=== PATIENT | male | born 1995 | race Caucasian/White ===

== ENCOUNTER 2017-10-02 08:03 | Day surgery (SDC) | payer OTHER ==
[~2017-10-02 08:03] MED LIST: ceFAZolin 2 GM/50 ML 2 GM/50 ML BAG IV ONE
[2017-10-02] MEDS ORDERED: LACTATED RINGERS 1,000 ML IV ONE ×2 (08:48→14:53)
[2017-10-02] MEDS ORDERED: BUPIVACAINE 0.25% PF 30 ML VIAL SUBQ ONE ×2 (12:00)
[2017-10-02] MEDS ORDERED: ACETAMINOPHEN 1,000 MG/100 ML 100 ML IV ONE (14:28)
[2017-10-02] MEDS ORDERED: HYDROmorphone 1 MG/ML SYRINGE ONE (14:39)
[2017-10-02] MEDS ORDERED: oxyCODONE 5 MG TABLET ONE (14:55)
--- NOTE | 2017-10-02 15:01 | OPERATIVE REPORT ---
DATE OF SURGERY: 10/02/2017 SURGEON: Matty Elder MD HAIR BALER: Reema Fisher MD PREOPERATIVE DIAGNOSIS: Right scaphoid fracture, pending nonunion. POSTOPERATIVE DIAGNOSIS: Right scaphoid fracture, pending nonunion. PROCEDURE PERFORMED: Right scaphoid open reduction internal fixation with distal radius autograft. POSTOPERATIVE PLAN: Splint on until followup. Transition to a cast at 2 weeks. Maintain that till 6 weeks. Range of motion with a Velcro splint from [address] scan obtained at 3 months to ensure healing prior to any sports. INDICATION FOR SURGERY: A 22-year-old male who sustained the above injury when he was skating approximately 4 months ago. He is unsure exactly when it happened. He did not seek any treatment until already 3 months out from his injury. X-ray showed a fracture without healing. It remained to be tender and have pain. Risks, benefits, and alternatives were discussed; risks include pain, bleeding, infection, damage to nearby structures, lack of central relief, need for further surgery, implant complications. The reason for surgery is because healing is delayed presentation, will most likely go on to nonunion and potentially some deformity. SURGICAL FINDINGS: Mid waist scaphoid fracture nonunion. It was gapped open, filled with cancellous autograft, and fixed. IMPLANTS: Acumed Accu-Trak standard headless compression screw 20 mm. ANESTHESIA: General. ANTIBIOTICS: Ancef. ESTIMATED BLOOD LOSS: 10 mL. URINE OUTPUT: Not recorded. IV FLUIDS: One liter. TOURNIQUET TIME: 112 minutes at 200 mmHg. SPECIMENS: None. COMPLICATIONS: None. DISPOSITION: Stable to PACU. DVT PROPHYLAXIS: SCDs while in the hospital. Early frequent ambulation afterwards. PROCEDURE IN DETAIL: Patient presented to the preoperative holding area the day of the procedure. Operative extremity signed, consent was verified, he desired to proceed. He was brought to the operating room and was rendered anesthesia. Once general anesthesia had been obtained, he was placed in the supine position. All bony prominences were well padded. Surgical area was prepped and draped in a standard sterile fashion. Surgical time-out was held, we confirmed the patient identity, procedure, allergies, antibiotics, images, all were in agreement and we proceeded. A hockey stick incision was made, a total of 5 cm long, proximal aspect in line with the FCR tendon ending at the scaphoid tubercle and then a 1-cm limb in line with the muscle fibers of the thenar eminence. Electrocautery was used to obtain hemostasis. Sharp dissection was brought down to FCR tendon sheath; it was opened, the tendon was retracted ulnarly and the floor of the sheath was incised. I then came down to the level of the volar wrist capsule and cleared off the tissue from it. I sharply dissected the volar wrist capsule, being careful not to damage the underlying cartilage. I left the capsule attached to the distal fragment of the scaphoid tubercle as well. The fracture site was identified; there was no significant displacement. I removed the abundant cartilage border at the edge of the fracture site and placed a Ralph into it and gaped it open. There was some early fibrous type healing but it opened easily with the use of a Ralph elevator. After I had done that, I then used a curet and a dental pick to debride all fibrous material from the fracture site. I then used a K wire and drilled 3 holes on both sides of the fracture site ensuring to have some bleeding. I then moved more proximally. I then obtained distal radial graft by making a small 1.5 cm x 1.5 cm window in the pronator quadratus. This was lifted up off the bone from radial to ulnar. I then drilled 4 holes with K wires in the corner, approximately 1 cm large, used a 1 cm straight osteotome to disrupt the volar cortex, then using a curved osteotome I leavered up a small piece of volar cortex with a curet, obtained cancellous graft. I then placed it into the fracture site. Under image intensification, I then identified the ST joint and made a transverse capsular incision there. A small rongeur was used to remove a portion of the trapezium to allow for the appropriate starting point for the screw. I then placed a screw center-center within the scaphoid and viewed it on the AP, lateral as well as multiple oblique views. I was able to view the volar aspect and I knew that it was safe volarly and proximally. I was satisfied with this position. I then measured it to be 24. We selected a 20- mm screw based on this. I then placed an anti-rotation wire just radial to the other one. The guidewire was then advanced into the distal radius and drilled on power to a depth of 22. I then placed a screw, ensuring it to be buried proximally under direct visualization. Image intensification was used throughout this time. The fracture then became very stable and compressed nicely. Satisfied with the position, I removed the anti-rotation pin and took final images at various oblique angles to ensure screw safety. The maximally pronated view showed a safe position dorsally. Satisfied with these, I irrigated the joint and closed the capsule with 4-0 FiberWire in [id number] fashion. I then closed the FCR tendon sheath floor with Vicryl and irrigated more. I closed the skin with 3-0 Vicryl buried and 4-0 nylon horizontal mattress. Then 20 mL of 0.25% Marcaine without epinephrine was instilled about the wound. Xeroform was placed and a sterile dressing was applied. A thumb spica splint was then applied. The patient was awakened, and transferred to the recovery room. X- rays were taken in the recovery room showing good screw position. TD: 10/02/2017 15:00 KYLER
--- NOTE | 2017-10-02 15:14 | XRAY Preliminary Report ---
Exam: XR WRIST 3 VIEW RT IMPRESSION: 1. Equivocal sclerosis proximal scaphoid fragment raising the possibility of preoperative avascular n ecrosis. Correlate with preoperative films to determine significance. 2. Otherwise, unremarkable postop exam. [facility] SITE ID: [id number]
--- NOTE | 2017-10-02 15:29 | XRAY Report ---
EXAM: RIGHT WRIST RADIOGRAPHY EXAM DATE: 10/02/2017 02:36 PM. CLINICAL HISTORY: Postop. COMPARISON: None. TECHNIQUE: 3 views. FINDINGS: Bones: Status post ORIF of a transverse fracture mid-scaphoid. Single longitudinal internal screw int act without migration. Fracture line is conspicuous without bony reactive changes. Proximal scaphoid fragment shows mild increased sclerosis relative to the distal, although this may b e artifactual, generated due to the overlying cast. Joints: Normal. No subluxations. Soft Tissues: Wrist edema. Casting material. IMPRESSION: 1. Equivocal sclerosis proximal scaphoid fragment raising the possibility of avascular necrosis. Chikis elate with preoperative films to determine significance. 2. Otherwise, unremarkable postop exam. [facility] Referring Provider Line: [phone] SITE ID: [id number]
[2017-10-02 15:47] VITALS: BP 120/78
== END 2017-10-02 08:04 | disposition home or self-care (01) ==
LOC: SDS 08:03
PROVIDERS: ATTEND Orthopaedic Surgery
PROC: 0PSM04Z Reposition Right Carpal with Internal Fixation Device, Open Approach (ICD-10-PCS; 2017-10-02)
PROC: 0PSM04Z Reposition Right Carpal with Internal Fixation Device, Open Approach (ICD-10-PCS; principal; 2017-10-02 10:00)
DX: S62.021A Displaced fracture of middle third of navicular [scaphoid] bone of right wrist, initial encounter for closed fracture (principal); W18.30XA Fall on same level, unspecified, initial encounter
CPT/HCPCS: 25440; 73110; A9270; J0131; J0690; J1170; J7120

== ENCOUNTER 2019-07-12 16:29 | Emergency (ER) | payer OTHER ==
[2019-07-12 16:37] VITALS: BP 142/90
--- NOTE | 2019-07-12 16:38 | ED Physician Documentation ---
PD HPI ANIMAL BITE - Stated complaint Stated Complaint: FACE DOG BITE - Chief complaint Chief Complaint: Wound - History obtained from History obtained from: Patient - History of Present Illness Location of injury(ies): Face (on both sides of bridge of nose, and also left thumb.), Left hand (thumb) Details of the event: Dog Timing - onset: Yesterday Timing - details: Abrupt onset (he was bit in face and thumb yesterday morning. He cleaned it off. Wound on face having some redness and faint drainage today. Thumb with some redness. Concerned about early infection.) Worsened by: Palpating. No: Moving Associated symptoms: Discolored (some redness developing today at thumb and left side of nose.). No: Weakness, Numbness Contributing factors: No: Immunocompromised, Asplenic, Un/under immunized Similar symptoms before: Has not had sx before Review of Systems Constitutional: denies: Fever, Chills Eyes: denies: Decreased vision, Irritation Neurologic: denies: Focal weakness, Numbness PD PAST MEDICAL HISTORY - Past Medical History Cardiovascular: None Respiratory: None Endocrine/Autoimmune: None GI: None : None HEENT: Other Psych: None Musculoskeletal: Other Derm: None - Present Medications Home Medications: Ambulatory Orders Medication Instructions Recorded Confirmed Amox/Clav 875/125 [Augmentin] 1 each PO Q12H #10 tablet 07/12/19 Ibuprofen 600 mg PO TID PRN #25 tablet 07/12/19 Mupirocin 1 applic TP TID #15 g 07/12/19 - Allergies Allergies/Adverse Reactions: Allergies Allergy/AdvReac Type Severity Reaction Status Date / Time No Known Drug Allergies Allergy Verified 09/19/17 10:04 PD ED PE NORMAL - Vitals Vital signs reviewed: Yes - General General: Alert and oriented X 3, No acute distress, Well developed/nourished - HEENT HEENT: PERRL, EOMI, Other (both sides of nasal bridge with small punctures. No laceration. Some redness left side of the nose/upper cheek, with some redness and slight mild drainage from a spot. No fluctuance. ) - Derm Derm: Normal color, Warm and dry - Extremities Extremities: Other (left thumb with small puncture distal fat pad. No FB felt. Able to flex at IP without pain. Normal sensation at tip. Has some redness around the wound. ) - Neuro Neuro: No motor deficit, No sensory deficit Results - Vitals Vitals: Vital Signs - 24 hr 07/12/19 16:34 Temperature 36.7 C Heart Rate 92 Respiratory 18 Rate Blood Pressure 142/90 H O2 Saturation 99 Oxygen O2 Source Room air PD MEDICAL DECISION MAKING - ED course Complexity details: considered differential (concern for early infection at thumb and face. ), d/w patient Departure - Departure Disposition: 01 Home, Self Care Clinical Impression: Infected dog bite of face Qualifiers: Encounter type: initial encounter Qualified Code(s): S01.85XA - Open bite of other part of head, initial encounter Animal bite of finger Qualifiers: Encounter type: initial encounter Qualified Code(s): S61.259A - Open bite of unspecified finger without damage to nail, initial encounter Condition: Stable Record reviewed to determine appropriate education?: Yes Instructions: ED Bite Dog Follow-Up: SILVESTRE PRETTY MD [Primary Care Provider] - Prescriptions: Amox/Clav 875/125 [Augmentin] 1 each PO Q12H #10 tablet Ibuprofen 600 mg PO TID PRN #25 tablet PRN Reason: Pain Mupirocin 1 applic TP TID #15 g Comments: Clean wounds with soap and water 2-3 times daily and apply mupirocin antibiotic ointment. Augmentin oral antibiotic twice daily as directed for the early infection. Use ibuprofen 3 times a day and add Tylenol if needed for pains. Recheck if not improved over the next several days and sooner if you have increasing redness or drainage. Discharge Date/Time: 07/12/19 17:21
[2019-07-12] MEDS ORDERED: IBUPROFEN 800 MG TABLET PO STA (16:59)
[2019-07-12] MEDS ORDERED: MUPIROCIN 2% OINT 1 GM TOP STA (16:59)
[2019-07-12] MEDS ORDERED: AMOX/CLAV 875 MG/125 MG TABLET PO STA (16:59)
== END 2019-07-12 17:21 | disposition home or self-care (01) ==
LOC: ED 16:29
DX: S01.25XA Open bite of nose, initial encounter (principal); S61.052A Open bite of left thumb without damage to nail, initial encounter; W54.0XXA Bitten by dog, initial encounter
CPT/HCPCS: 99283; A9270

== ENCOUNTER 2021-03-08 | Emergency (ER) | payer OTHER ==
--- OUTSIDE RECORDS SUMMARY | 2021-03-08 13:25 | EXTERNAL MEDICAL SUMMARY RPT | Continuity of Care Document ---
:1995 Demographics Phone Unavailable Preferred Language Unknown Marital Status Unknown Mandaen Affiliation Unknown Race Unknown Ethnic Group Unknown Author Organization [facility] Address [address] [place] [address] Phone Allergies Encounters Medications Problems Results
--- NOTE | 2021-03-08 13:31 | ED Physician Documentation ---
PD HPI OPHTHO - Stated complaint Stated Complaint: PX IN LT EYE - Chief complaint Chief Complaint: Heent - History obtained from History obtained from: Patient - Additional information Additional information: "Lump on the left lower eyelid for 6 months, worse this morning. Called the [facility] advice line and was advised to come straight to the emergency department. Review of Systems Constitutional: reports: Reviewed and negative Eyes: reports: Reviewed and negative Ears: reports: Reviewed and negative Nose: reports: Reviewed and negative PD PAST MEDICAL HISTORY - Past Medical History Past Medical History: Yes Cardiovascular: None Respiratory: None Neuro: None Endocrine/Autoimmune: None GI: None : None HEENT: Other Psych: None Musculoskeletal: Other Derm: None - Past Surgical History Past Surgical History: Yes - Present Medications Home Medications: Ambulatory Orders Medication Instructions Recorded Confirmed Amox/Clav 875/125 [Augmentin] 1 each PO Q12H #10 tablet 07/12/19 Ibuprofen 600 mg PO TID PRN #25 tablet 07/12/19 Mupirocin 1 applic TP TID #15 g 07/12/19 Erythromycin Base [Erythromycin 1 appful OP 5XD 7 Days #1 gm 03/08/21 Ophthalmic Ointment] cephALEXin [Keflex] 500 mg PO Q6H #28 cap 03/08/21 - Allergies Allergies/Adverse Reactions: Allergies Allergy/AdvReac Type Severity Reaction Status Date / Time No Known Drug Allergies Allergy Verified 03/08/21 13:03 - Social History Does the pt smoke?: No Smoking Status: Never smoker Does the pt drink ETOH?: Yes Does the pt have substance abuse?: No - Immunizations Immunizations are current?: Yes PD ED PE NORMAL - Vitals Vital signs reviewed: Yes - General General: Alert and oriented X 3, No acute distress - HEENT HEENT: PERRL, EOMI, Other (He has a mildly infected stye that is actually quite large on the left lower lid.) - Neuro Neuro: Alert and oriented X 3, Normal speech Results - Vitals Vitals: Vital Signs - 24 hr 03/08/21 12:58 Temperature 36.6 C Heart Rate 74 Respiratory 15 Rate Blood Pressure 128/74 O2 Saturation 100 Oxygen O2 Source Room air Departure - Departure Disposition: 01 Home, Self Care Clinical Impression: Stye Qualifiers: Laterality: left Eyelid: lower Qualified Code(s): H00.015 - Hordeolum externum left lower eyelid Condition: Good Record reviewed to determine appropriate education?: Yes Instructions: AIDEN [facility] Follow-Up: Jonel Henriquez MD [Provider Admit Priv/Credential] - Prescriptions: Erythromycin Base [Erythromycin Ophthalmic Ointment] 1 appful OP 5XD 7 Days #1 gm cephALEXin [Keflex] 500 mg PO Q6H #28 cap Comments: Follow-up with the credit control manager for consideration for surgical drainage. His number is on this form, call today for an appointment. Return for new or worsening symptoms.
== END 2021-03-08 13:51 | disposition home or self-care (01) ==
DX: H00.015 Hordeolum externum left lower eyelid (principal)
CPT/HCPCS: 99282; 99283